=== PATIENT | female | born 1985 | race African-American/Black ===

== ENCOUNTER 2018-01-14 16:02 | Inpatient (IN) | payer MEDICAID ==
[~2018-01-14] VITALS: Ht 160 cm; Wt 74.9 kg
[2018-01-14 16:48] LABS: Basophils # (auto) 0.1 uL; Eosinophils # (auto) 0.2 uL; Hematocrit 28.8 % (36.0-46.0); Hemoglobin 9.1 g/dL (12.2-16.2); Monocytes # (auto) 0.4 uL; Nucleated Red Blood Cells % 0.1 %; White Blood Cell 6.3 10^3/uL (4.4-10.8)
[2018-01-14 16:50] LABS: Basophils % (auto) 1.2 % (0.0-2.0); Eosinophils % (auto) 3.1 % (0.0-7.0); Lymphocytes # (auto) 1.4 uL; Lymphocytes % (auto) 22.2 % (10.0-50.0); Mean Corpuscular Hgb Conc. 31.5 g/dL (32.0-36.0); Mean Corpuscular Volume 63.6 fL (80.0-100.0); Monocytes % (auto) 6.4 % (0.0-12.0); Neutrophils # (auto) 4.2 uL; Neutrophils % (auto) 67.1 % (37.0-80.0); Platelet Count (auto) 254 10^3/uL (140-450); Red Blood Cells 4.53 10^6/uL (4.0-5.20)
[2018-01-14 16:58] LABS: Red Cell Distribution Width 23.1 % (11.8-14.3)
[2018-01-14 17:07] LABS: Albumin 3.2 g/dL (3.4-5.0); BUN/Creatinine Ratio 8.1; Calcium 7.6 mg/dL (8.5-10.1); Potassium 3.7 mmol/L (3.5-5.1)
[2018-01-14 17:09] LABS: Bilirubin, Total 0.2 mg/dL (0.2-1.0); Total Protein 7.4 g/dL (6.4-8.2)
[2018-01-14] MEDS ORDERED: ACETAMINOPHEN 325 MG TAB PO ONE (17:30)
[2018-01-14] MEDS ORDERED: ONDANSETRON HCL 4 MG/2 ML VIAL IV ONE (18:00)
[2018-01-14] MEDS ORDERED: OXYTOCIN 10UNIT/ML 1ML VIAL IV ONE (18:00)
[2018-01-14] MEDS ORDERED: MORPHINE SULFATE 4 MG/ML SYR/VIAL IV ONE (18:00)
[2018-01-14] MEDS ORDERED: OXYTOCIN 20 UNT in LACTATED RINGER'S 1,000 ML IV ONE (18:15)
[2018-01-14] MEDS ORDERED: fentaNYL CITRATE 100 MCG/2 ML VL ONE (20:53)
[2018-01-14] MEDS ORDERED: SODIUM CHLORIDE LOCK 10 ML ONE (20:53)
[2018-01-14] MEDS ORDERED: PROPOFOL 10 MG/ML 20 ML IV ONE (20:53)
[2018-01-14] MEDS ORDERED: ONDANSETRON HCL 4 MG/2 ML VIAL ONE (20:53)
[2018-01-14] MEDS ORDERED: MIDAZOLAM HCL 1MG/1ML-2 ML VIAL ONE (20:53)
[2018-01-14] MEDS ORDERED: ROCURONIUM 10MG/ML 10ML VIAL IV ONE ×2 (20:57)
[2018-01-14] MEDS ORDERED: ceFAZolin 1GM/50ML 50 ML IV ONE (21:07)
[2018-01-14] MEDS ORDERED: KETOROLAC TROMETH 60MG/2ML VIAL IM ONE (21:31)
[2018-01-14 21:42] LABS: Basophils # (auto) 0 uL; Eosinophils # (auto) 0.1 uL; Hemoglobin 8.1 g/dL (12.2-16.2); Monocytes # (auto) 0.4 uL; White Blood Cell 9.2 10^3/uL (4.4-10.8)
[2018-01-14 21:43] LABS: Basophils % (auto) 0.1 % (0.0-2.0); Eosinophils % (auto) 0.7 % (0.0-7.0); Hematocrit 25.5 % (36.0-46.0); Lymphocytes % (auto) 10.4 % (10.0-50.0); Mean Corpuscular Hemoglobin 20.5 pg (28.0-32.0); Mean Corpuscular Hgb Conc. 31.9 g/dL (32.0-36.0); Mean Corpuscular Volume 64.2 fL (80.0-100.0); Monocytes % (auto) 4.3 % (0.0-12.0); Neutrophils # (auto) 7.8 uL; Neutrophils % (auto) 84.5 % (37.0-80.0); Platelet Count (auto) 217 10^3/uL (140-450); Red Blood Cells 3.98 10^6/uL (4.0-5.20)
[2018-01-14] MEDS ORDERED: ONDANSETRON HCL 4 MG/2 ML VIAL IV PRN (21:45)
[2018-01-14] MEDS ORDERED: LACTATED RINGER'S 1,000 ML IV SCH (21:45)
[2018-01-14] MEDS ORDERED: HYDROmorphone HCL 2 MG/ML VL IV PRN (22:00)
[2018-01-14] MEDS ORDERED: METOCLOPRAMIDE HCL 5MG/ml INJ 2ml VIAL IV ONE (22:00)
[2018-01-14 22:05] LABS: INR 1.12 (0.9-1.15); Partial Thromboplastin Time 28.3 sec (23.78-33.04); Prothrombin Time 11.9 sec (9.27-12.13)
[2018-01-14 22:26] LABS: Eosinophils # (auto) 0 uL; Hemoglobin 7.4 g/dL (12.2-16.2)
[2018-01-14 22:28] LABS: Basophils # (auto) 0 uL; Basophils % (auto) 0.5 % (0.0-2.0); Eosinophils % (auto) 0.6 % (0.0-7.0); Hematocrit 23.2 % (36.0-46.0); Lymphocytes % (auto) 11.3 % (10.0-50.0); Mean Corpuscular Hemoglobin 20.3 pg (28.0-32.0); Mean Corpuscular Hgb Conc. 31.7 g/dL (32.0-36.0); Mean Corpuscular Volume 64.1 fL (80.0-100.0); Monocytes # (auto) 0.3 uL; Monocytes % (auto) 3.8 % (0.0-12.0); Neutrophils # (auto) 7.4 uL; Neutrophils % (auto) 83.8 % (37.0-80.0); Platelet Count (auto) 197 10^3/uL (140-450); Red Blood Cells 3.62 10^6/uL (4.0-5.20); White Blood Cell 8.9 10^3/uL (4.4-10.8)
[2018-01-14 22:29] LABS: Red Cell Distribution Width 22.8 % (11.8-14.3)
[2018-01-14 22:50] VITALS: BP 106/57
[2018-01-14 23:11] VITALS: BP 106/57
[2018-01-15] VITALS (13 sets, daily range): BP systolic 94–113; BP diastolic 54–72
[2018-01-15 11:26] LABS: Basophils # (auto) 0 uL; Basophils % (auto) 0.7 % (0.0-2.0); Eosinophils # (auto) 0.1 uL; Eosinophils % (auto) 1.8 % (0.0-7.0); Hematocrit 25.9 % (36.0-46.0); Hemoglobin 8.5 g/dL (12.2-16.2); Lymphocytes # (auto) 1.6 uL; Lymphocytes % (auto) 27.4 % (10.0-50.0); Mean Corpuscular Hemoglobin 21.9 pg (28.0-32.0); Mean Corpuscular Hgb Conc. 32.9 g/dL (32.0-36.0); Mean Corpuscular Volume 66.6 fL (80.0-100.0); Monocytes # (auto) 0.4 uL; Monocytes % (auto) 6.1 % (0.0-12.0); Neutrophils # (auto) 3.9 uL; Platelet Count (auto) 188 10^3/uL (140-450); Red Blood Cells 3.88 10^6/uL (4.0-5.20)
[2018-01-15 11:27] LABS: Red Cell Distribution Width 25.4 % (11.8-14.3)
== END 2018-01-15 17:20 | disposition home or self-care (01) | DRG 544 ==
LOC: ER 16:02 → OR 1 20:38 → CENTRAL 20:39
PROVIDERS: ADMIT Specialist; ATTEND Specialist
PROC: 10D17ZZ Extraction of Products of Conception, Retained, Via Natural or Artificial Opening (ICD-10-PCS; principal; 2018-01-14 21:06)
PROC: 30233N1 Transfusion of Nonautologous Red Blood Cells into Peripheral Vein, Percutaneous Approach (ICD-10-PCS; 2018-01-15)
DX: O03.4 Incomplete spontaneous abortion without complication (principal); D50.0 Iron deficiency anemia secondary to blood loss (chronic); F17.210 Nicotine dependence, cigarettes, uncomplicated; O99.02 Anemia complicating childbirth; Z82.49 Family history of ischemic heart disease and other diseases of the circulatory system
CPT/HCPCS: 36415; 36430; 76801; 80053; 84702; 85025; 85610; 85730; 86850; 86900; 86901; 86920; 96374; 96375; J0690; J1885; J2250; J2405; J2590; J2704